=== PATIENT | female | born 1965 | race Caucasian/White ===

== ENCOUNTER 2016-07-08 06:25 | Emergency (ER) | payer OTHER ==
[2016-07-08 06:31] VITALS: RESP 16; TEMP 98.4
--- NOTE | 2016-07-08 07:23 | EDPHY ---
H & P Time Seen by Provider: 07/08/16 07:22 HPI/ROS: Chief complaint. Sore throat HPI. 50-year-old female began have a sore throat yesterday. She feels is not a diffuse sore throat like usual but it is focal to the right side of her throat. This morning she started to spit up a little bit of blood and feels as coming from the lesion on the right side of her throat. It hurts to swallow. In looking in her throat her feels that there is a raised red area on the right side of her throat. She otherwise has congestion and slight cough. No fever. No similar symptoms previously. Patient is trying to leave to go to [place] in 2 hours ROS Constitutional. no fever/chills, no weakness Eyes. no problems with vision ENT. Sore throat and spitting up blood Cardiovascular. no chest pain Respiratory. no shortness of breath, no cough Abdominal. no abdominal pain, no nausea/vomiting, no diarrhea . no problems urinating MS. no calf pain/swelling, no neck/back pain, no joint pain Skin. no rash Lymph. no swollen glands Neuro. no headache, no dizziness, no difficulty walking or with speech Past Medical/Surgical History: Healthy Social History: , nonsmoker, no alcohol Smoking Status: Never smoked Physical Exam: General Appearance: Alert well-developed female mild distress vital signs are stable Eyes: Pupils equal and round no pallor or injection. ENT, pharynx without significant injection. There is a half by 1 cm slightly raised erythematous bump in the right posterior pharynx. No active bleeding is seen. No significant lymphadenopathy. Respiratory: There are no retractions, lungs are clear to auscultation. Cardiovascular: Regular rate and rhythm. Gastrointestinal: Abdomen is soft and nontender, no masses, bowel sounds normal. Neurological: Awake and alert, sensory and motor exams grossly normal. Skin: Warm and dry, no rashes. Musculoskeletal: Neck is supple nontender. Extremities symmetrical, full range of motion. Psychiatric: Patient is oriented X 3, there is no agitation. Constitutional: Initial Vital Signs Temperature (C) 36.9 C 07/08/16 06:27 Heart Rate 58 L 07/08/16 06:27 Respiratory Rate 16 07/08/16 06:27 Blood Pressure 146/84 H 07/08/16 06:27 O2 Sat (%) 97 04/16/17 06:27 O2 Delivery Mode Room Air Allergies/Adverse Reactions: Sulfa (Sulfonamide Antibiotics) [Sulfa(Sulfonamide Antibiotics)] Allergy ( Verified 07/08/16 06:31) Home Medications: Medication Instructions Recorded Sprintec 09/08/11 Clindamycin HCl [Clindamycin] 300 mg PO TID #21 cap 07/08/16 Medical Decision Making - Diagnostics Imaging: Imaging Impressions Soft Tissue Neck X-Ray 07/08/16 07:36 Impression: 1. No acute findings in the neck. 2. 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 Chest X-Ray 07/08/16 07:39 Impression: Mild bronchitis. One-view chest x-ray shows no evidence for pneumonia. Consistent with mild bronchitis Soft tissue neck reviewed by me and discussed with Dr. Flanagan shows no evidence for prevertebral swelling or airway compromise. ED Course/Re-evaluation: Re-evaluation 835 am--patient is stable. Conversational. Handling secretions. Speaking in full sentences No active bleeding the patient feels that she can still taste some blood in the back of her throat I consulted and discussed the case with Dr. Park, ENT who will save the see the patient in the office tomorrow morning. She recommends Decadron and clindamycin I discussed treatment plan with the patient including criteria for return importance of follow-up further evaluation. She expresses understanding and agreement Differential Diagnosis: I considered peritonsillar abscess, epiglottitis, strep pharyngitis - Data Points Laboratory Results: Laboratory Results 07/08/16 07:39 07/08/16 07:39 07/08/16 07/08/16 07/08/16 Unknown 07:39 07:39 WBC RBC Hgb Hct MCV MCH MCHC RDW Plt Count MPV Neut % (Auto) Lymph % (Auto) Douglas % (Auto) Eos % (Auto) Baso % (Auto) Nucleat RBC Rel Count Absolute Neuts (auto) Absolute Lymphs (auto) Absolute Monos (auto) Absolute Eos (auto) Absolute Basos (auto) Absolute Nucleated RBC Immature Gran % Immature Gran # PT 13.0 SEC SEC (12.0-15.0) INR 0.99 (0.83-1.16) Sodium 143 mEq/L mEq/L (134-144) Potassium 4.3 mEq/L mEq/L (3.5-5.2) Chloride 105 mEq/L mEq/L (97-110) Carbon Dioxide 26 mEq/l mEq/l (22-31) Anion Gap 12 mEq/L mEq/L (8-16) BUN 18 mg/dL mg/dL (7-23) Creatinine 1.0 mg/dL mg/dL (0.6-1.0) Estimated GFR 59 Glucose 89 mg/dL mg/dL (70-100) Calcium 9.4 mg/dL mg/dL (8.5-10.4) Group A Strep Screen Group A Strep DNA Pending 07/08/16 07/08/16 07:39 07:39 WBC 5.42 10^3/uL 10^3/uL (3.80-9.50) RBC 4.92 10^6/uL 10^6/uL (4.18-5.33) Hgb 14.6 g/dL g/dL (12.6-16.3) Hct 43.1 % % (38.0-47.0) MCV 87.6 fL fL (81.5-99.8) MCH 29.7 pg pg (27.9-34.1) MCHC 33.9 g/dL g/dL (32.4-36.7) RDW 12.7 % % (11.5-15.2) Plt Count 295 10^3/uL 10^3/uL (150-400) MPV 8.3 fL L fL (8.7-11.7) Neut % (Auto) 58.8 % % (39.3-74.2) Lymph % (Auto) 30.1 % % (15.0-45.0) Douglas % (Auto) 8.3 % % (4.5-13.0) Eos % (Auto) 1.7 % % (0.6-7.6) Baso % (Auto) 0.9 % % (0.3-1.7) Nucleat RBC Rel Count 0.0 % % (0.0-0.2) Absolute Neuts (auto) 3.19 10^3/uL 10^3/uL (1.70-6.50) Absolute Lymphs (auto) 1.63 10^3/uL 10^3/uL (1.00-3.00) Absolute Monos (auto) 0.45 10^3/uL 10^3/uL (0.30-0.80) Absolute Eos (auto) 0.09 10^3/uL 10^3/uL (0.03-0.40) Absolute Basos (auto) 0.05 10^3/uL 10^3/uL (0.02-0.10) Absolute Nucleated RBC 0.00 10^3/uL 10^3/uL (0-0.01) Immature Gran % 0.2 % % (0.0-1.1) Immature Gran # 0.01 10^3/uL 10^3/uL (0.00-0.10) PT INR Sodium Potassium Chloride Carbon Dioxide Anion Gap BUN Creatinine Estimated GFR Glucose Calcium Group A Strep Screen NEGATIVE (NEGATIVE) Group A Strep DNA Departure - Departure Disposition: Home, Routine, Self-Care Clinical Impression: Acute pharyngitis Qualifiers: Pharyngitis/tonsillitis etiology: unspecified etiology Qualified Code(s): J02.9 - Acute pharyngitis, unspecified Condition: Good Instructions: Pharyngitis (ED) Additional Instructions: Begin clindamycin today. Call Dr. Park's office tomorrow morning at 7:30 a.m. to arrange re-evaluation tomorrow morning. Return today for worsening bleeding , trouble swallowing. Referrals: Kiara George MD [Primary Care Provider] - As per Instructions Karina Park PA [Physician Survey Project Manager] - As per Instructions Prescriptions: Clindamycin HCl [Clindamycin] 300 mg PO TID #21 cap
[2016-07-08 07:50] LABS: % IMMATURE GRANULYOCYTES 0.2 % (0.0-1.1); ABSOLUTE IMMATURE GRANULOCYTES 0.01 10^3/uL (0.00-0.10); ADD DIFF? NO; ADD MORPH? NO; ADD SCAN? NO; ATYPICAL LYMPHOCYTE FLAG 10 (0-99); FRAGMENT RBC FLAG 0 (0-99); HEMATOCRIT 43.1 % (38.0-47.0); HEMOGLOBIN 14.6 g/dL (12.6-16.3); LEFT SHIFT FLG 0 (0-99); LIPEMIA HEMOLYSIS FLAG 90 (0-99); MEAN CELL HEMOGLOBIN 29.7 pg (27.9-34.1); MEAN CELL HEMOGLOBIN CONCENTR. 33.9 g/dL (32.4-36.7); MEAN CELL VOLUME 87.6 fL (81.5-99.8); MEAN PLATELET VOLUME 8.3 fL (8.7-11.7); PLATELET CLUMPS FLAG 0 (0-99); PLATELET COUNT 295 10^3/uL (150-400); RED BLOOD CELL COUNT 4.92 10^6/uL (4.18-5.33); RED CELL DISTRIBUTION WIDTH 12.7 % (11.5-15.2)
[2016-07-08 08:02] LABS: INR 0.99 (0.83-1.16)
[2016-07-08 08:03] LABS: ANION GAP 12 mEq/L (8-16); CALCIUM 9.4 mg/dL (8.5-10.4); CARBON DIOXIDE 26 mEq/l (22-31); CHLORIDE 105 mEq/L (97-110); GLOMERULAR FILTRATION RATE 59; GLUCOSE 89 mg/dL (70-100); POTASSIUM 4.3 mEq/L (3.5-5.2); SODIUM 143 mEq/L (134-144)
[2016-07-08] MEDS ORDERED: DEXAMETHASONE 4 MG TAB PO ONE (08:57)
[2016-07-08 09:13] VITALS: BP 145/91; PULSE 62; O2SAT 94
== END 2016-07-08 09:12 | disposition home or self-care (01) ==
DX: J02.9 Acute pharyngitis, unspecified (principal)

== ENCOUNTER → 2017-07-26 | Outpatient (CLI) | payer OTHER | LOC: FIMAGING 16:09 | PROVIDERS: ATTEND Family Medicine | DX: Z12.31 Encounter for screening mammogram for malignant neoplasm of breast (principal) ==